=== PATIENT | female | born 1945 | race Caucasian/White ===

== ENCOUNTER 2025-02-25 13:00 | Outpatient (RCR) | payer MEDICARE, SELFPAY ==
[2025-02-11 08:53] VITALS: BP 120/59; PULSE 46; RESP 18; TEMP 36.3; BMI 31.3
--- NOTE | 2025-02-12 13:37 | WC ---
PHOTO 02/11/25 LEFT ANKLE
--- NOTE | 2025-02-12 13:38 | WC ---
PHOTO 02/11/25 RIGHT ANKLE
--- NOTE | 2025-02-13 12:28 | HP.PCM_ITS ---
History of Present Illness Date of Service: 02/11/25 Chief Complaint: Bilateral lower extremity venous stasis ulcerations History of Wound: This is a 79-year-old female with chronic venous insufficiency, venous stasis dermatitis, chronic venous hypertension with ulcer and inflammation, etc. These venous conditions involve both lower extremities. The patient admits to chronic swelling in her lower extremities. She sleeps in a recliner. She is retired, and sits in idle fashion most of each day. The patient presents with severe venous stasis skin changes in both lower extremities, as well as large venous ulcerations bilaterally. She is not diabetic. She smokes cigarettes occasionally. She has been treated at several places prior to her presentation at the [facility] wound center. She has been treated at the [facility]. She has been treated at the [facility] in [facility]. Most recently, the patient has been treated at [facility]. Her treatments have included Unna boots. Treatments have also included the use of Dakin's-moistened gauze. Currently, the patient is using mupirocin 2% ointment and triamcinolone 0.1% ointment topically to the right lower extremity ulceration, and timolol 0.25% gel topically to the left lower extremity ulceration. She is currently in the midst of a course of oral cephalexin. Pentoxifylline 400 mg daily has been prescribed. [facility] Medical History (Updated 02/13/25 @ 12:[address] Aron Sandoval MD) Bilateral leg edema Chronic venous hypertension (idiopathic) with ulcer and inflammation of bilateral lower extremity Venous hypertension, chronic, with ulcer and inflammation Venous hypertension, chronic, with ulcer and inflammation Venous stasis dermatitis of both lower extremities Chronic venous insufficiency Tobacco abuse counseling Tobacco abuse Chronic anticoagulation Polyneuropathy Polycythemia vera Osteoarthritis of right knee History of bladder cancer Atrial fibrillation Hyperlipidemia Hypertension Home Medications ?Medication ?Instructions ?Recorded ?Last Taken ?Type amitriptyline 25 mg tablet mg PO 02/11/25 Unknown Hist ory apixaban 5 mg tablet (Eliquis) 5 mg PO BID 02/11/25 Un known History atenolol 50 mg tablet 50 mg PO DAILY 02/11/25 Unkn own History cephalexin 500 mg capsule 500 mg PO TID 02/11/25 Unkno wn History hydrochlorothiazide 12.5 mg capsule 12.5 mg PO DAILY 0 02/11/25 Unknown History hydroxyurea 500 mg capsule PO 02/11/25 Unknown History ibandronate 150 mg tablet 150 mg PO DAILY 02/11/25 Unk nown History mupirocin 2 % topical ointment topical BID 02/11/25 Un known History oxycodone-acetaminophen 5 mg-325 1 tab PO Q6H PRN PRN severe pain 02/11/25 Unknown History mg tablet pentoxifylline 400 mg 400 mg PO DAILY 02/11/25 Unk nown History tablet,extended release pravastatin 20 mg tablet 20 mg PO QHS 02/11/25 Unknow n History pregabalin 300 mg capsule 300 mg PO QHS 02/11/25 Unkno wn History timolol maleate 0.25 % eye gel BID 02/11/25 Unknown Hi story forming solution triamcinolone acetonide 0.1 % topical BID 02/11/25 Unk nown History topical ointment Allergy/AdvReac Type Severity Reaction Status Date / Time No Known Allergies Allergy Verified 02/11/25 08:50 Social History Smoking Status: Light Smoker (<10/day) Vital Signs Vital Signs Vital Signs: Weight Weight: 194 lb Body Mass Index (BMI) 31.3 Physical Exam Const alert, oriented x3 and no apparent distress General Appearance: cooperative, comfortable and well developed Orientation / Consciousness: awake, oriented to person, oriented to place and oriented to time HEENT normocephalic and head/scalp atraumatic Head and Scalp: normal to inspection, normocephalic and atraumatic Nose: external nose normal External Ear: external ears normal Eyes EOMs intact bilaterally General Eye: normal appearance of both eyes Resp normal respiratory effort, normal air movement, no retractions and no use of accessory muscles Effort and Inspection: able to speak in complete sentences Skin Wound Narrative: Mild swelling and edema are noted in the patient's lower extremities bilaterally. Diffuse atrophy kojo is also noted in the gaiter areas bilaterally. Severe venous stasis dermatitis is noted in the gaiter areas bilaterally. A large ulceration is noted on the distal right posterolateral calf and ankle. A large ulceration is also noted on the left lateral ankle. These ulcerations full-thickness depth, extending through all layers of the dermis and into the subcutaneous tissues. Ulcer margins are irregular. Dimensions are documented elsewhere. There is a moderate amount of slough and nonviable tissue, though some pink, healthy granulation tissue is noted. Lipodermatosclerosis is noted bilaterally. Neuro oriented x3, CN's II-XII intact bilaterally and moves all extremities Sensorium / Orientation: awake, alert, oriented to person, oriented to place and oriented to time Speech: speech normal Psych Appearance: grossly normal and appropriate Attitude: calm Activity / Motor Behavior: appropriate eye contact Speech: normal speech Mood & Affect: euthymic mood Thought Process: normal thought process Thought Content: normal thought content Attention / Concentration: attention grossly intact Debridement Note Debridement Note Wound debrided: Right distal, posterolateral leg and ankle; left lateral ankle Laterality: Not Applicable (Bilateral) Type of Debridement: Excisional debridement Anesthesia Used: Cetacaine Depth: Down to and including healthy tissue and in the subcutaneous layer Percentage of wound debrided: 100 Instrument Used: 5mm curette Tissue Removed: Slough, bioburden, and devitalized tissue Severity: Fat Layer Exposed Amount of bleeding with debridement: Mild Bleeding Controlled with: Compression and gauze Patient tolerated procedure: Patient did not tolerate procedure well Debridement Free Text: The patient refused the application of lidocaine gel. The procedure was performed using Cetacaine spray. The patient did not tolerate debridement well. She was tearful and distraught during the debridement. Her emotional reaction to the debridement process resulted in a somewhat limited debridement. Post-Debridement Measurements and Additional Note: Post-Debridement Measurements/Treatment WC - Nurse 1 - General Ulcer Assessment Start: 02/11/25 08:53 Freq: Status: Active Protocol: CINTHIA Activity Type Activity Date Activity User E-sign Co-sign Detail Recorded Client Recorded Date Recorded By Document 02/11/25 08:53 KW [id number] 02/11/25 09:06 KW 02/11/25 08:53 - Today's Visit Information Type of service Initial Visit Arrival Mode Ambulatory Accompanied by friend Patient Identification Verified (Name & Yes ) Height and Weight Height 5 ft 6 in Weight 194 lb Weight in Pounds 194.0 lbs Weight Measurement Method Estimated by Patient Body Mass Index (BMI) 31.3 BMI Classification Obese Vital Signs Temperature (97.8 F-99.1 F) 97.3 F L Temperature Source Temporal Pulse Rate (60-100) 46 L Pulse Location Monitor Respiratory Rate (12-18) 18 Respiratory rate source Observation Oxygen Delivery Method Room Air Blood Pressure (90/60-120/80) 120/59 L Blood Pressure Mean 79 Source Monitor Position Sitting Blood Pressure Location Left Arm History Since Last Visit- (Skip if this is Patient's initial visit) Left Footwear Regular Shoe Right Footwear Regular Shoe Pain Scale: 0-10 Numeric Is Patient Pain Free? No Communication Assessment Preferred language Syriac Bellman Captain Required No Able to Read Yes Able to Write Yes Communication Tools None Caregiver Communication Skills No Impairment Impairment Right Hearing Abillity Normal Left Hearing Abillity Normal Visual Assistive Devices Glasses Teaching Assessment Preferences Verbal,Written, Demonstration Barriers to Learning None Readiness To Learn Excellent Willingness to Engage in Self Management High Activies Readiness to Engage in Self Management High Activities Anxiety Level Calm Cooperation Cooperative Perception Coherent Interest in Health Problem Asks Questions Education Importance Acknowledges Need Does Patient Smoke tobacco or other No substances Smoking Status Light Smoker (< 10/day) Is Patient Diabetic No Functional Assessment Recent Decline in Ability to Perform Denies Any Declines WC - Nurse 1 - General Ulcer Measurement Start: 02/11/25 08:53 Freq: Status: Active Protocol: Activity Type Activity Date Activity User E-sign Co-sign Detail Recorded Client Recorded Date Recorded By Document 02/11/25 08:53 [id number] 02/11/25 09:06 02/11/25 08:53 Wound Center Nurse 1 #2 LT LAT ANKLE -Current Size (cm) - Length 1.5 -Current Size (cm) - Width 2.5 -Current Size (cm) - Depth 0.3 -Total Square Cm 3.75 -Date of Last Picture (Recall this 02/11/25 field) -Exudate Amt Medium -Exudate Type Serosanguineous -Wound Margin Thickened -Granulation Amt None Present (0 %) -Necrosis Amt Large (67-100%) -Necrotic Tissue Type Adherent Slough -Texture ([place]-wound Skin Appearance) Assessed -Moisture ([place]-wound Skin Appearance) Assessed -Color ([place]-wound Skin Appearance) Assessed, Erythema -Temperature ([place]-wound Skin No Abnormality Appearance) (Pt Warm) -Tenderness on Palpation ([place]-wound No Skin Appearance) -Ulcer Cleansing Soap and Water -Foul Odor after Cleansing No -Anesthetic Used 5% Lidocaine Gel #1 RT LAT LE CLUSTER -Current Size (cm) - Length 12.4 -Current Size (cm) - Width 9.7 -Current Size (cm) - Depth 0.3 -Total Square Cm 120.28 -Date of Last Picture (Recall this 02/11/25 field) -Exudate Amt Medium -Exudate Type Serosanguineous -Wound Margin Thickened -Granulation Amt Small (1-33%) -Granulation Quality [place] -Necrosis Amt Large (67-100%) -Necrotic Tissue Type Adherent Slough -Texture ([place]illa-wound Skin Appearance) Assessed -Moisture ([place]-wound Skin Appearance) Assessed -Color ([place]-wound Skin Appearance) Assessed, Erythema -Temperature ([place]-wound Skin No Abnormality Appearance) (Pt Warm) -Tenderness on Palpation ([place]-wound No Skin Appearance) -Ulcer Cleansing Soap and Water -Foul Odor after Cleansing No Right Calf (cm) 39.6 Left Calf (cm) 40.6 Left Ankle (cm) 24.5 WC - Nurse 2 - General Ulcer CM Notes Start: 02/11/25 08:53 Freq: Status: Active Protocol: Activity Type Activity Date Activity User E-sign Co-sign Detail Recorded Client Recorded Date Recorded By Document 02/11/25 09:32 AMY [id number] 02/11/25 09:53 AMY 02/11/25 09:32 Wound Center Nurse 2 #2 LT LAT ANKLE -Time 09:50 -Correct Patient Yes -Correct Side, Site, Position Yes -Correct Procedure Yes -Procedure Performed Yes -Type of Procedure Debridement -Clinical Debridement Subcutaneous -Tissue Removed Subcutaneous -Post Debridement (cm) - Length 1.8 -Post Debridement (cm) - Width 3.8 -Post Debridement (cm) - Depth 0.2 -Total Square (Post) (cm) 6.84 -Area of Debridement (cm) - Length 1.8 -Area of Debridement (cm) - Width 3.8 -Total Square (Area) (cm) 6.84 -Tunneling No -Undermining/Tunneling No -Circular Undermining No -Wound/Ulcer Outcome Not Healed -Ulcer Cleansing Rinsed/ Irrigated with Saline -Foul Odor after Cleansing No -Bioengineered Tissue No -Bleeding Controlled with Pressure -Treatment Response Procedure Tolerated Well -Offloading No -Debridement - Subq, 1st 20sq cm No #1 RT LAT LE CLUSTER -Time 09:50 -Correct Patient Yes -Correct Side, Site, Position Yes -Correct Procedure Yes -Procedure Performed Yes -Type of Procedure Debridement -Clinical Debridement Subcutaneous -Tissue Removed Subcutaneous -Post Debridement (cm) - Length 8 -Post Debridement (cm) - Width 8 -Post Debridement (cm) - Depth 0.1 -Total Square (Post) (cm) 64 -Area of Debridement (cm) - Length 8 -Area of Debridement (cm) - Width 8 -Total Square (Area) (cm) 64 -Tunneling No -Undermining/Tunneling No -Circular Undermining No -Wound/Ulcer Outcome Not Healed -Ulcer Cleansing Rinsed/ Irrigated with Saline -Foul Odor after Cleansing No -Bioengineered Tissue No -Bleeding Controlled with Pressure -Treatment Response Procedure Tolerated Well -Offloading No -Debridement - Subq, 1st 20sq cm Yes -Debridement, SubQ, ea addt'l 20sq cm 3 or part thereof Pain Scale: 0-10 Numeric Is Patient Pain Free? Yes - Nurse 3 - General Ulcer D/C NN Start: 02/11/25 08:53 Freq: Status: Active Protocol: Activity Type Activity Date Activity User E-sign Co-sign Detail Recorded Client Recorded Date Recorded By Document 02/11/25 10:[address] [facility] [id number] 02/11/25 10:[address] [facility] 02/11/25 10:02 Wound Care Center Nurse 3 #2 LT LAT ANKLE -Ulcer Cleansing Soap and Water -Foul Odor after Cleansing No -Primary Dressing Applied Optilok 5x5 1/2 -Other Dressing DRSG PER AMY RN -Optilok 5x5 1/2 1 #1 RT LAT LE CLUSTER -Ulcer Cleansing Soap and Water -Foul Odor after Cleansing No -Primary Dressing Applied Optilok 5x5 1/2 -Optilok 5x5 1/2 1 BLE -Multi-Layered Wrap Application Unna Boot - Bilateral -Other APPLIED PER AMY RN -Unna- Bilat (Qty applied) 1 Pain Scale: 0-10 Numeric Is Patient Pain Free? Yes WC - Visit Discharge Discharge Condition Stable Ambulatory Status Ambulatory, Walker Transportation Private Auto Accompanied by FRIEND Charges/Coding Procedures Integumentary Add On Codes: 91058 Carri subq tissue add-on (07933 x 3) Multi Select Codes Visit Charges Office Visit/Consults: 03344 OV L4 New 45 min Integumentary Integumentary CPT Codes: 34047 Carri subq tissue 20 sq cm/< (68647 x 1) Assessment/Plan Assessment/Plan (1) Chronic venous hypertension (idiopathic) with ulcer and inflammation of bilateral lower extremity: CODE(S): I87.333 - Chronic venous hypertension (idiopathic) with ulcer and inflammation of bilateral lower extremity (2) Venous hypertension, chronic, with ulcer and inflammation: CODE(S): I87.339 - Chronic venous hypertension (idiopathic) with ulcer and inflammation of unspecified lower extremity QUALIFIERS: Laterality: right Qualified Code(s): I87.331 - Chronic venous hypertension (idiopathic) with ulcer and inflammation of right lower extremity (3) Venous hypertension, chronic, with ulcer and inflammation: CODE(S): I87.339 - Chronic venous hypertension (idiopathic) with ulcer and inflammation of unspecified lower extremity QUALIFIERS: Laterality: left Qualified Code(s): I87.332 - Chronic venous hypertension (idiopathic) with ulcer and inflammation of left lower extremity (4) Venous stasis dermatitis of both lower extremities: CODE(S): I87.2 - Venous insufficiency (chronic) (peripheral) (5) Chronic venous insufficiency: CODE(S): I87.2 - Venous insufficiency (chronic) (peripheral) (6) Bilateral leg edema: CODE(S): R60.0 - Localized edema (7) Hyperlipidemia: CODE(S): E78.5 - Hyperlipidemia, unspecified (8) Hypertension: CODE(S): I10 - Essential (primary) hypertension (9) Atrial fibrillation: CODE(S): I48.91 - Unspecified atrial fibrillation (10) History of bladder cancer: CODE(S): Z85.51 - Personal history of malignant neoplasm of bladder (11) Osteoarthritis of right knee: CODE(S): M17.11 - Unilateral primary osteoarthritis, right knee (12) Polycythemia vera: CODE(S): D45 - Polycythemia vera (13) Polyneuropathy: CODE(S): G62.9 - Polyneuropathy, unspecified (14) Chronic anticoagulation: CODE(S): Z79.01 - half-way (current) use of anticoagulants (15) Tobacco abuse: CODE(S): Z72.0 - Tobacco use (16) Tobacco abuse counseling: CODE(S): Z71.6 - Tobacco abuse counseling PLAN: Plan This is a 79-year-old female with severe, bilateral lower extremity venous disease. She presented with swelling and edema in both lower extremities. There severe venous stasis changes to both lower extremities, as well as large venous stasis ulcerations bilaterally. We have discussed the appropriate conservative measures relative to the management of the patient's venous disease. She has been encouraged to elevate her lower extremity as much as possible. Elevation is to be to heart level, or higher. Elevation should be implemented during both daytime and nighttime hours. Patient has been encouraged to sleep on a flat mattress at night. She is to elevate her legs during the day as well. Patient has been encouraged to complete her oral cephalexin prescription. She has also been encouraged to remain on Pentoxifylline. We have discussed the options for ulcer management. Consid eration had been given to the use of collagenase Santyl topically, with the use of a superabsorber dressing and Tubigrip's or compression wraps. Patient refused to consider this option. She declines to apply compression to her lower extremities on a daily basis. However, she has tolerated Unna boots in the past, and has consented to the use of Unna compression wraps currently, which will be changed twice weekly. Patient has been encouraged to optimize her nutritional intake. She has also been encouraged to discontinue her smoking habit. The patient is to return in 1 week for reevaluation. Total time: 48 minutes
[2025-02-14 13:01] VITALS: BP 123/75; PULSE 79; RESP 19; TEMP 35.8; BMI 31.3
[2025-02-18 13:29] VITALS: BP 135/68; PULSE 47; RESP 18; TEMP 36.4; BMI 31.3
--- NOTE | 2025-02-19 10:17 | WC ---
PHOTO - RIGHT POST LEG 02-18-25
--- NOTE | 2025-02-19 10:18 | WC ---
PHOTO - LEFT LAT ANKLE 02-18-25
--- NOTE | 2025-02-19 14:40 | WC ---
Chaime measuremenets: Length: right 36.0 left 42.0 calf: right 34.5 left 36.0 ankle: right 23.0 left 22.5
--- NOTE | 2025-02-20 11:03 | HP.PCM_ITS ---
History of Present Illness Date of Service: 02/18/25 Chief Complaint: Bilateral lower extremity venous stasis ulcerations History of Wound: This is a 79-year-old female with chronic venous insufficiency, venous stasis dermatitis, chronic venous hypertension with ulcer and inflammation, etc. These venous conditions involve both lower extremities. The patient admits to chronic swelling in her lower extremities. She sleeps in a recliner. She is retired, and sits in idle fashion most of each day. The patient presented with severe venous stasis skin changes in both lower extremities, as well as large venous ulcerations bilaterally. She is not diabetic. She smokes cigarettes occasionally. She has been treated at several places prior to her presentation at the [facility]. She had been treated at the [facility] in [place], [place]. She had been treated at the [facility] in [facility]. Most recently, the patient had been treated at [facility]. Her treatments have included Unna boots. Treatments have also included the use of Dakin's-moistened gauze. At the time of intake, the patient was using mupirocin 2% ointment and triamcinolone 0.1% ointment topically to the right lower extremity ulceration, and timolol 0.25% gel topically to the left lower extremity ulceration. She has completed a recent course of oral cephalexin. Pentoxifylline 400 mg daily has been previously prescribed. The patient denies a history of thrombophlebitis. [facility] Medical History Bilateral leg edema Chronic venous hypertension (idiopathic) with ulcer and inflammation of bilateral lower extremity Venous hypertension, chronic, with ulcer and inflammation Venous hypertension, chronic, with ulcer and inflammation Venous stasis dermatitis of both lower extremities Chronic venous insufficiency Tobacco abuse counseling Tobacco abuse Chronic anticoagulation Polyneuropathy Polycythemia vera Osteoarthritis of right knee History of bladder cancer Atrial fibrillation Hyperlipidemia Hypertension Home Medications ?Medication ?Instructions ?Recorded ?Last Taken ?Type amitriptyline 25 mg tablet mg PO 02/11/25 Unknown Hist ory apixaban 5 mg tablet (Eliquis) 5 mg PO BID 02/11/25 Un known History atenolol 50 mg tablet 50 mg PO DAILY 02/11/25 Unkn own History cephalexin 500 mg capsule 500 mg PO TID 02/11/25 Unkno wn History hydrochlorothiazide 12.5 mg capsule 12.5 mg PO DAILY 0 02/11/25 Unknown History hydroxyurea 500 mg capsule PO 02/11/25 Unknown History ibandronate 150 mg tablet 150 mg PO DAILY 02/11/25 Unk nown History mupirocin 2 % topical ointment topical BID 02/11/25 Un known History oxycodone-acetaminophen 5 mg-325 1 tab PO Q6H PRN PRN severe pain 02/11/25 Unknown History mg tablet pentoxifylline 400 mg 400 mg PO DAILY 02/11/25 Unk nown History tablet,extended release pravastatin 20 mg tablet 20 mg PO QHS 02/11/25 Unknow n History pregabalin 300 mg capsule 300 mg PO QHS 02/11/25 Unkno wn History timolol maleate 0.25 % eye gel BID 02/11/25 Unknown Hi story forming solution triamcinolone acetonide 0.1 % topical BID 02/11/25 Unk nown History topical ointment Allergy/AdvReac Type Severity Reaction Status Date / Time No Known Allergies Allergy Verified 02/11/25 08:50 Social History Smoking Status: Light Smoker (<10/day) Vital Signs Vital Signs Vital Signs: Weight Weight: 194 lb Body Mass Index (BMI) 31.3 Physical Exam Const alert, oriented x3, no apparent distress and no limitations Constitutional Narrative: The patient's BMI is 31.3. General Appearance: cooperative, comfortable and well developed Orientation / Consciousness: awake, oriented to person, oriented to place and oriented to time Exam Limitations: no limitations HEENT normocephalic and head/scalp atraumatic Head and Scalp: normal to inspection, normocephalic and atraumatic Face and Sinus: normal facial exam Nose: external nose normal External Ear: external ears normal Eyes EOMs intact bilaterally General Eye: normal appearance of both eyes Resp normal respiratory effort, normal air movement, no retractions and no use of accessory muscles Effort and Inspection: able to speak in complete sentences Skin Wound Narrative: Mild swelling and edema are noted in the patient's lower extremities bilaterally. Diffuse atrophy kojo is also noted in the gaiter areas bilaterally. Severe venous stasis dermatitis is noted in the gaiter areas bilaterally. A large ulceration is noted on the distal right posterolateral ca lf and ankle. A large ulceration is also noted on the left lateral ankle. These ulcerations are full-thickness in depth, extending through all layers of the dermis and into the subcutaneous tissues. Ulcer margins are irregular. Dimensions are documented elsewhere. There is a moderate amount of slough and nonviable tissue, though some pink, healthy granulation tissue is noted. Lipodermatosclerosis is noted bilaterally. Neuro oriented x3, CN's II-XII intact bilaterally, moves all extremities, no focal motor deficits and no sensory deficits noted Sensorium / Orientation: awake, alert, oriented to person, oriented to place and oriented to time Speech: speech normal Psych Appearance: grossly normal and appropriate Attitude: calm Activity / Motor Behavior: appropriate eye contact Speech: normal speech Mood & Affect: euthymic mood Thought Process: normal thought process Thought Content: normal thought content Attention / Concentration: attention grossly intact Debridement Note Debridement Note Wound debrided: Right distal, postero-lateral leg and ankle; left lateral ankle Laterality: Not Applicable (Bilateral) Type of Debridement: Excisional debridement Anesthesia Used: 5% Lidocaine Gel and Cetacaine Depth: Down to and including healthy tissue and in the subcutaneous layer Percentage of wound debrided: 100 Instrument Used: 5mm curette Tissue Removed: Slough, bioburden, and devitalized tissue Severity: Fat Layer Exposed Amount of bleeding with debridement: Mild Bleeding Controlled with: Compression and gauze Patient tolerated procedure: Patient did not tolerate procedure well Debridement Free Text: The patient did not tolerate debridement well. She was tearful during the debridement. Post-Debridement Measurements and Additional Note: Post-Debridement Measurements/Treatment - Nurse 1 - General Ulcer Assessment Start: 02/11/25 08:53 Freq: Status: Active Protocol: PASTORA.ROMINA Activity Type Activity Date Activity User E-sign Co-sign Detail Recorded Client Recorded Date Recorded By Document 02/11/25 08:53 KW [id number] 02/11/25 09:06 KW Document 02/14/25 13:01 DL [id number] 02/14/25 13:16 DL Document 02/18/25 13:29 KW [id number] 02/18/25 13:31 KW 02/11/25 02/14/25 02/18/25 08:53 13:01 13:29 - Today's Visit Information Type of service Initial Visit Nurse-only Follow-up Visit Visit (Physician/NOVEL[facility] ) Arrival Mode Ambulatory Ambulatory, Ambulatory Wheelchair Transfer Assistance None Accompanied by friend friend Patient Identification Verified (Name & Yes Yes Yes ) Patient Requires Transmission-Based No Precautions Height and Weight Height 5 ft 6 in Weight 194 lb Weight in Pounds 194.0 lbs Weight Measurement Method Estimated by Patient Body Mass Index (BMI) 31.3 31.3 31.3 BMI Classification Obese Obese Obese Vital Signs Temperature (97.8 F-99.1 F) 97.3 F L 96.5 F L 97.5 F L Temperature Source Temporal Oral Temporal Pulse Rate (60-100) 46 L 79 47 L Pulse Location Monitor Monitor Monitor Respiratory Rate (12-18) 18 19 H 18 Respiratory rate source Observation Observation Observation Oxygen Delivery Method Room Air Room Air Blood Pressure (90/60-120/80) 120/59 L 123/75 H 135/68 H Blood Pressure Mean 79 91 90 Source Monitor Monitor Monitor Position Sitting Semi-Fowlers Blood Pressure Location Left Arm Left Arm History Since Last Visit- (Skip if this is Patient's initial visit) Have you changed medications since your No No last visit? Any new allergies or adverse reactions No No Had a fall/change in ADL's that may No No increase risk of falls Signs or symptoms of abuse and/or No neglect since last visit Have you been in the hospital since your No No last visit? Has dressing in place as prescribed Yes Yes Has compression in place as prescribed Yes Yes Has offloadiing in place as prescribed N/A Yes Experienced any changes in pain level or No No management Left Footwear Regular Shoe Regular Shoe Right Footwear Regular Shoe Regular Shoe Pain Scale: 0-10 Numeric Is Patient Pain Free? No Yes Yes Communication Assessment Preferred language Macedonian Quantitative Equity Head Required No Able to Read Yes Able to Write Yes Communication Tools None Caregiver Communication Skills No Impairment Impairment Right Hearing Abillity Normal Left Hearing Abillity Normal Visual Assistive Devices Glasses Teaching Assessment Preferences Verbal,Written, Demonstration Barriers to Learning None Readiness To Learn Excellent Willingness to Engage in Self Management High Activies Readiness to Engage in Self Management High Activities Anxiety Level Calm Cooperation Cooperative Perception Coherent Interest in Health Problem Asks Questions Education Importance Acknowledges Need Does Patient Smoke tobacco or other No substances Smoking Status Light Smoker (< 10/day) Is Patient Diabetic No Functional Assessment Recent Decline in Ability to Perform Denies Any Declines WC - Nurse 1 - General Ulcer Measurement Start: 02/11/25 08:53 Freq: Status: Active Protocol: Activity Type Activity Date Activity User E-sign Co-sign Detail Recorded Client Recorded Date Recorded By Document 02/11/25 08:53 KW [id number] 02/11/25 09:06 KW Document 02/18/25 13:29 KW [id number] 02/18/25 13:31 KW 02/11/25 02/18/25 08:53 13:29 Wound Center Nurse 1 #2 LT LAT ANKLE -Current Size (cm) - Length 1.5 1.5 -Current Size (cm) - Width 2.5 4.5 -Current Size (cm) - Depth 0.3 0.1 -Total Square Cm 3.75 6.75 -Date of Last Picture (Recall this 02/11/25 02/18/25 field) -Exudate Amt Medium Large -Exudate Type Serosanguineous Serosanguineous -Wound Margin Thickened Thickened -Granulation Amt None Present (0 Small (1-33%) %) -Granulation Quality Red -Necrosis Amt Large (67-100%) Large (67-100%) -Necrotic Tissue Type Adherent Slough Adherent Slough -Texture (Kamilla-wound Skin Appearance) Assessed Assessed -Moisture (Kamilla-wound Skin Appearance) Assessed Assessed -Color (Kamilla-wound Skin Appearance) Assessed, Assessed, Erythema Erythema, Hemosiderin Staining -Temperature (Kamilla-wound Skin No Abnormality No Abnormality Appearance) (Pt Warm) (Pt Warm) -Tenderness on Palpation (Kamilla-wound No No Skin Appearance) -Ulcer Cleansing Soap and Water Soap and Water -Foul Odor after Cleansing No No -Anesthetic Used 5% Lidocaine 5% Lidocaine Gel Gel #1 RT LAT LE CLUSTER -Current Size (cm) - Length 12.4 9 -Current Size (cm) - Width 9.7 8 -Current Size (cm) - Depth 0.3 0.2 -Total Square Cm 120.28 72 -Date of Last Picture (Recall this 02/11/25 02/18/25 field) -Exudate Amt Medium Large -Exudate Type Serosanguineous Serosanguineous -Wound Margin Thickened Thickened -Granulation Amt Small (1-33%) Small (1-33%) -Granulation Quality River[place] Riverdale -Necrosis Amt Large (67-100%) Large (67-100%) -Necrotic Tissue Type Adherent Slough Adherent Slough -Texture (Kamilla-wound Skin Appearance) Assessed Assessed -Moisture (Kamilla-wound Skin Appearance) Assessed Assessed -Color (Kamilla-wound Skin Appearance) Assessed, Assessed, Erythema Erythema, Hemosiderin Staining -Temperature (Kamilla-wound Skin No Abnormality No Abnormality Appearance) (Pt Warm) (Pt Warm) -Tenderness on Palpation (Kamilla-wound No No Skin Appearance) -Ulcer Cleansing Soap and Water Soap and Water -Foul Odor after Cleansing No No -Anesthetic Used 5% Lidocaine Gel Right Calf (cm) 39.6 Left Calf (cm) 40.6 Left Ankle (cm) 24.5 WC - Nurse 2 - General Ulcer CM Notes Start: 02/11/25 08:53 Freq: Status: Active Protocol: Activity Type Activity Date Activity User E-sign Co-sign Detail Recorded Client Recorded Date Recorded By Document 02/11/25 09:32 [id number] 02/11/25 09:53 Document 02/18/25 13:47 DS [id number] 02/18/25 13:56 DS 02/11/25 02/18/25 09:32 13:47 Wound Center Nurse 2 #2 LT LAT ANKLE -Time 09:50 13:47 -Correct Patient Yes Yes -Correct Side, Site, Position Yes Yes -Correct Procedure Yes Yes -Procedure Performed Yes Yes -Type of Procedure Debridement Debridement -Clinical Debridement Subcutaneous Subcutaneous -Tissue Removed Subcutaneous Subcutaneous -Post Debridement (cm) - Length 1.8 2.0 -Post Debridement (cm) - Width 3.8 2.5 -Post Debridement (cm) - Depth 0.2 0.2 -Total Square (Post) (cm) 6.84 5.00 -Area of Debridement (cm) - Length 1.8 2.0 -Area of Debridement (cm) - Width 3.8 2.5 -Total Square (Area) (cm) 6.84 5.00 -Tunneling No No -Undermining/Tunneling No No -Circular Undermining No No -Wound/Ulcer Outcome Not Healed Not Healed -Ulcer Cleansing Rinsed/ Irrigated with Saline -Foul Odor after Cleansing No No -Bioengineered Tissue No No -Bleeding Controlled with Pressure Pressure -Treatment Response Procedure Procedure Tolerated Well Tolerated Well -Offloading No -Debridement - Subq, 1st 20sq cm No No #1 RT LAT LE CLUSTER -Time 09:50 13:47 -Correct Patient Yes Yes -Correct Side, Site, Position Yes Yes -Correct Procedure Yes Yes -Procedure Performed Yes Yes -Type of Procedure Debridement Debridement -Clinical Debridement Subcutaneous Subcutaneous -Tissue Removed Subcutaneous Subcutaneous -Post Debridement (cm) - Length 8 8.0 -Post Debridement (cm) - Width 8 8.5 -Post Debridement (cm) - Depth 0.1 0.2 -Total Square (Post) (cm) 64 68.00 -Area of Debridement (cm) - Length 8 8.0 -Area of Debridement (cm) - Width 8 8.5 -Total Square (Area) (cm) 64 68.00 -Tunneling No No -Undermining/Tunneling No No -Circular Undermining No No -Wound/Ulcer Outcome Not Healed Not Healed -Ulcer Cleansing Rinsed/ Irrigated with Saline -Foul Odor after Cleansing No No -Bioengineered Tissue No No -Bleeding Controlled with Pressure Pressure -Treatment Response Procedure Procedure Tolerated Well Tolerated Well -Offloading No -Debridement - Subq, 1st 20sq cm Yes Yes -Debridement, SubQ, ea addt'l 20sq cm 3 3 or part thereof Pain Scale: 0-10 Numeric Is Patient Pain Free? Yes No RLE -Description Sharp,Throbbing -Intensity 7 -Duration (hours) Chronic -Pain Behavior Moaning, Guarding -Pain Aggravating Factors Debridement -Alleviating Factors/Interventions Distraction WC - Nurse 3 - General Ulcer D/C NN Start: 02/11/25 08:53 Freq: Status: Active Protocol: Activity Type Activity Date Activity User E-sign Co-sign Detail Recorded Client Recorded Date Recorded By Document 02/11/25 10:02 [facility] [id number] 02/11/25 10:05 [facility] Document 02/14/25 13:01 DL [id number] 02/14/25 13:16 DL Document 02/18/25 14:21 KW [id number] 02/18/25 14:27 KW Edit Result 02/18/25 14:21 KW (1) [id number] 02/18/25 14:28 KW (1) BLE - Multi-Layered Wrap Application => Unna Boot - => Bilateral - Size E ($) 1 => 2 - Other => tubigrip is for pt => to apply when => switch tp self => dressing for vasc. => visit - Unna- Bilat (Qty applied) => 1 02/11/25 02/14/25 02/18/25 10:02 13:01 14:21 Wound Care Center Nurse 3 #2 LT LAT ANKLE -Ulcer Cleansing Soap and Water Soap and Water Soap and Water -Foul Odor after Cleansing No No -Primary Dressing Applied Optilok 5x5 1/2 Optilok 5x5 1/2 -Other Dressing DRSG PER JF RN ABD -Other Covering Unna -Optilok 5x5 1/2 1 1 #1 RT LAT LE CLUSTER -Ulcer Cleansing Soap and Water Soap and Water -Foul Odor after Cleansing No No -Primary Dressing Applied Optilok 5x5 1/2 Optilok 6.5x10 -Other Dressing ABD -Other Covering Unna -Optilok 5x5 1/2 1 -Optilok 6.5x10 1 BLE -Multi-Layered Wrap Application Unna Boot - Unna Boot - Unna Boot - Bilateral Bilateral Bilateral -Tubular Bandage Single Layer -Size of Tubigrip Used Size E -Size E ($) 2 -Other APPLIED PER JF tubigrip is for RN pt to apply when switch tp self dressing for vasc. visit -Unna- Bilat (Qty applied) 1 1 1 Treatment Response Procedure Tolerated Well Pain Scale: 0-10 Numeric Is Patient Pain Free? Yes Yes Yes WC - Visit Discharge Discharge Condition Stable Stable Stable Ambulatory Status Ambulatory, Ambulatory, Wheelchair Walker Wheelchair Transportation Private Auto Private Auto Private Auto Accompanied by FRIEND Medication Reconcilliation completed & No provided to patient/care provider Clinical Summary of Care Provided Yes Charges/Coding Procedures Integumentary Add On Codes: 85097 Carri subq tissue add-on (46470 x 3) Multi Select Codes Integumentary Integumentary CPT Codes: 22367 Carri subq tissue 20 sq cm/< (20697 x 1) Assessment/Plan Assessment/Plan (1) Chronic venous hypertension (idiopathic) with ulcer and inflammation of bilateral lower extremity: CODE(S): I87.333 - Chronic venous hypertension (idiopathic) with ulcer and inflammation of bilateral lower extremity (2) Venous hypertension, chronic, with ulcer and inflammation: CODE(S): I87.339 - Chronic venous hypertension (idiopathic) with ulcer and inflammation of unspecified lower extremity QUALIFIERS: Laterality: bilateral Qualified Code(s): I87.333 - Chronic venous hypertension (idiopathic) with ulcer and inflammation of bilateral lower extremity (3) Venous stasis dermatitis of both lower extremities: CODE(S): I87.2 - Venous insufficiency (chronic) (peripheral) (4) Chronic venous insufficiency: CODE(S): I87.2 - Venous insufficiency (chronic) (peripheral) (5) Bilateral leg edema: CODE(S): R60.0 - Localized edema (6) Hyperlipidemia: CODE(S): E78.5 - Hyperlipidemia, unspecified (7) Hypertension: CODE(S): I10 - Essential (primary) hypertension (8) Atrial fibrillation: CODE(S): I48.91 - Unspecified atrial fibrillation (9) History of bladder cancer: CODE(S): Z85.51 - Personal history of malignant neoplasm of bladder (10) Osteoarthritis of right knee: CODE(S): M17.11 - Unilateral primary osteoarthritis, right knee (11) Polycythemia vera: CODE(S): D45 - Polycythemia vera (12) Polyneuropathy: CODE(S): G62.9 - Polyneuropathy, unspecified (13) Chronic anticoagulation: CODE(S): Z79.01 - terminal press operator (current) use of anticoagulants (14) Tobacco abuse: CODE(S): Z72.0 - Tobacco use (15) Tobacco abuse counseling: CODE(S): Z71.6 - Tobacco abuse counseling PLAN: Plan This is a 79-year-old female with severe, bilateral lower extremity venous disease. She presented with swelling and edema in both lower extremities. There are severe venous stasis changes to both lower extremities, as well as large venous stasis ulcerations bilaterally. We have discussed the appropriate conservative measures relative to the management of the patient's venous disease. She has been encouraged to elevate her lower extremities as much as possible. Elevation is to be to heart level, or higher. Elevation should be implemented during both daytime and nighttime hours. The patient has been encouraged to sleep on a flat mattress at night. She is to elevate her legs during the day as well. The patient has completed a recent course of oral cephalexin. She has also been encouraged to remain on Pentoxifylline, and a renewal of her prescription is to be sent to her local pharmacy. We have discussed the options for ulcer management. Consideration had been given to the use of collagenase Santyl topically, with the use of a superabsorber dressing and Tubigrip's or compression wraps. The patient refused to consider these options. She refuses to use graduated compression stockings to the lower extremities which would require donning on a daily basis. However, we have demonstrated the option of CircAid Velcro compression garments, and the patient appears to embrace this as an option. Circumference measurements have been obtained of the patient's lower extremities, and will be sent to the patient's DME provider in an attempt to procure CircAid compression garments. The patient has tolerated Unna boots recently, and has consented to the continuing use of Unna compression wraps, which will be changed twice weekly. The patient has been encouraged to optimize her nutritional intake. She has also been encouraged to discontinue her smoking habit. The patient indicates that she has an appointment with Dr. Scotty Lisa, a Vascular Surgeon in [place], [place], on Friday, February 21, 2025. Medical records will be sent to Dr. Lisa as a prelude to his assessment. It is anticipated that the patient may be a candidate for an endovenous ablation procedure. The patient is to return in 1 week for reevaluation. Total time: 28 minutes
[2025-02-25 13:04] VITALS: BP 142/74; PULSE 66; RESP 18; TEMP 36.3; BMI 31.3
--- NOTE | 2025-02-26 13:26 | WC ---
PHOTO-RLE CLUSTER 02/05/25
--- NOTE | 2025-02-26 13:27 | WC ---
PHOTO-RLE CLUSTER 02/25/25
--- NOTE | 2025-02-27 15:53 | HP.PCM_ITS ---
History of Present Illness Date of Service: 02/25/25 Chief Complaint: Bilateral lower extremity venous stasis ulcerations History of Wound: This is a 79-year-old female who was referred with a diagnosis of chronic venous insufficiency, venous stasis dermatitis, chronic venous hypertension with ulcer and inflammation, etc. These venous conditions involved both lower extremities. The patient admits to chronic swelling in her lower extremities. She sleeps in a recliner. She is retired, and sits in idle fashion most of each day. The patient presented with skin changes in both lower extremities which were suggestive of venous stasis dermatitis. Large ulcerations were noted at ankle level bilaterally, also suspicious for a venous origin. The patient is not diabetic. She smokes cigarettes occasionally. She has been treated at several medical facilities prior to her presentation at the [facility]. She had apparently been treated at the [facility] in [place], [place]. She had also been treated at the [facility] in [facility]. Most recently, the patient had been treated at [facility] in [place], [place]. Her treatments have included Unna boots. Treatments have also included the use of Dakin's- moistened gauze. At the time of intake at our facility, the patient was using mupirocin 2% ointment and triamcinolone 0.1% ointment topically to the right lower extremity ulceration, and timolol 0.25% gel topically to the left lower extremity ulceration. She had completed a recent course of oral cephalexin. Pentoxifylline 400 mg daily had been prescribed. The patient denied a history of thrombophlebitis. [facility] Medical History Bilateral leg edema Chronic venous hypertension (idiopathic) with ulcer and inflammation of bilateral lower extremity Venous hypertension, chronic, with ulcer and inflammation Venous hypertension, chronic, with ulcer and inflammation Venous stasis dermatitis of both lower extremities Chronic venous insufficiency Tobacco abuse counseling Tobacco abuse Chronic anticoagulation Polyneuropathy Polycythemia vera Osteoarthritis of right knee History of bladder cancer Atrial fibrillation Hyperlipidemia Hypertension Home Medications ?Medication ?Instructions ?Recorded ?Last Taken ?Type amitriptyline 25 mg tablet mg PO 02/11/25 Unknown Hist ory apixaban 5 mg tablet (Eliquis) 5 mg PO BID 02/11/25 Un known History atenolol 50 mg tablet 50 mg PO DAILY 02/11/25 Unkn own History cephalexin 500 mg capsule 500 mg PO TID 02/11/25 Unkno wn History hydrochlorothiazide 12.5 mg capsule 12.5 mg PO DAILY 0 02/11/25 Unknown History hydroxyurea 500 mg capsule PO 02/11/25 Unknown History ibandronate 150 mg tablet 150 mg PO DAILY 02/11/25 Unk nown History mupirocin 2 % topical ointment topical BID 02/11/25 Un known History oxycodone-acetaminophen 5 mg-325 1 tab PO Q6H PRN PRN severe pain 02/11/25 Unknown History mg tablet pentoxifylline 400 mg 400 mg PO DAILY 02/11/25 Unk nown History tablet,extended release pravastatin 20 mg tablet 20 mg PO QHS 02/11/25 Unknow n History pregabalin 300 mg capsule 300 mg PO QHS 02/11/25 Unkno wn History timolol maleate 0.25 % eye gel BID 02/11/25 Unknown Hi story forming solution triamcinolone acetonide 0.1 % topical BID 02/11/25 Unk nown History topical ointment pentoxifylline 400 mg 400 mg PO TID #90 tabs 02/20 Unknown Rx tablet,extended release Allergy/AdvReac Type Severity Reaction Status Date / Time No Known Allergies Allergy Verified 02/11/25 08:50 Social History Smoking Status: Light Smoker (<10/day) Vital Signs Vital Signs Vital Signs: Weight Weight: 194 lb Body Mass Index (BMI) 31.3 Physical Exam Const alert, oriented x3, no apparent distress and no limitations Constitutional Narrative: The patient's BMI is 31.3. General Appearance: cooperative, comfortable, well kempt and well developed Orientation / Consciousness: awake, oriented to person, oriented to place and oriented to time Exam Limitations: no limitations HEENT normocephalic and head/scalp atraumatic Head and Scalp: normal to inspection, normocephalic and atraumatic Face and Sinus: normal facial exam Nose: external nose normal External Ear: external ears normal Eyes EOMs intact bilaterally General Eye: normal appearance of both eyes Neck full ROM Resp normal respiratory effort, normal air movement, no retractions and no use of accessory muscles Effort and Inspection: able to speak in complete sentences Skin Wound Narrative: Mild swelling and edema are noted in the patient's lower extremities bilaterally. Erythema and dermatitic changes are noted in the gaiter areas bilaterally. A large ulceration is noted on the distal right posterolateral calf and ankle. A large ulceration is also noted on the left lateral ankle. These ulcerations are full-thickness in depth, extending through all layers of the dermis and into the subcutaneous tissues. Ulcer margins are irregular. Dimensions are documented elsewhere. There is a moderate amount of bioburden, slough, and nonviable tissue, though some pink, healthy granulation tissue is noted. Neuro oriented x3, CN's II-XII intact bilaterally, moves all extremities, no focal motor deficits and no sensory deficits noted Sensorium / Orientation: awake, alert, oriented to person, oriented to place and oriented to time Speech: speech normal Psych Appearance: grossly normal and appropriate Attitude: calm Activity / Motor Behavior: appropriate eye contact Speech: normal speech Mood & Affect: euthymic mood Thought Process: normal thought process Thought Content: normal thought content Attention / Concentration: attention grossly intact Debridement Note Debridement Note No debridement was completed: No debridement was completed today Post-Debridement Measurements and Additional Note: Post-Debridement Measurements/Treatment - Nurse 1 - General Ulcer Assessment Start: 02/11/25 08:53 Freq: Status: Active Protocol: CINTHIA Activity Type Activity Date Activity User E-sign Co-sign Detail Recorded Client Recorded Date Recorded By Document 02/11/25 08:53 KW [id number] 02/11/25 09:06 KW Document 02/14/25 13:01 DL [id number] 02/14/25 13:16 DL Document 02/18/25 13:29 KW [id number] 02/18/25 13:31 KW Document 02/25/25 13:04 BMF [id number] 02/25/25 13:13 BM 02/11/25 02/14/25 02/18/25 08:53 13:01 13:29 - Today's Visit Information Type of service Initial Visit Nurse-only Follow-up Visit Visit (Physician/ART GILDER ) Arrival Mode Ambulatory Ambulatory, Ambulatory Wheelchair Transfer Assistance None Transfer Assist (Other) Accompanied by friend friend Patient Identification Verified (Name & Yes Yes Yes ) Patient Requires Transmission-Based No Precautions Height and Weight Height 5 ft 6 in Weight 194 lb Weight in Pounds 194.0 lbs Weight Measurement Method Estimated by Patient Body Mass Index (BMI) 31.3 31.3 31.3 BMI Classification Obese Obese Obese Vital Signs Temperature (97.8 F-99.1 F) 97.3 F L 96.5 F L 97.5 F L Temperature Source Temporal Oral Temporal Pulse Rate (60-100) 46 L 79 47 L Pulse Location Monitor Monitor Monitor Respiratory Rate (12-18) 18 19 H 18 Respiratory rate source Observation Observation Observation Oxygen Delivery Method Room Air Room Air Blood Pressure (90/60-120/80) 120/59 L 123/75 H 135/68 H Blood Pressure Mean 79 91 90 Source Monitor Monitor Monitor Position Sitting Semi-Fowlers Blood Pressure Location Left Arm Left Arm History Since Last Visit- (Skip if this is Patient's initial visit) Have you changed medications since your No No last visit? Any new allergies or adverse reactions No No Had a fall/change in ADL's that may No No increase risk of falls Signs or symptoms of abuse and/or No neglect since last visit Have you been in the hospital since your No No last visit? Has dressing in place as prescribed Yes Yes Has compression in place as prescribed Yes Yes Has offloadiing in place as prescribed N/A Yes Experienced any changes in pain level or No No management Left Footwear Regular Shoe Regular Shoe Right Footwear Regular Shoe Regular Shoe Pain Scale: 0-10 Numeric Is Patient Pain Free? No Yes Yes Communication Assessment Preferred language Georgian Assistant Professor Of Nursing Required No Able to Read Yes Able to Write Yes Communication Tools None Caregiver Communication Skills No Impairment Impairment Right Hearing Abillity Normal Left Hearing Abillity Normal Visual Assistive Devices Glasses Teaching Assessment Preferences Verbal,Written, Demonstration Barriers to Learning None Readiness To Learn Excellent Willingness to Engage in Self Management High Activies Readiness to Engage in Self Management High Activities Anxiety Level Calm Cooperation Cooperative Perception Coherent Interest in Health Problem Asks Questions Education Importance Acknowledges Need Does Patient Smoke tobacco or other No substances Smoking Status Light Smoker (< 10/day) Is Patient Diabetic No Functional Assessment Recent Decline in Ability to Perform Denies Any Declines 02/25/25 13:04 WC - Today's Visit Information Type of service Follow-up Visit (Physician/ART GILDER ) Arrival Mode Wheelchair Transfer Assistance Other Transfer Assist (Other) stand by Accompanied by Patient Identification Verified (Name & ) Patient Requires Transmission-Based Precautions Height and Weight Height Weight Weight in Pounds Weight Measurement Method Body Mass Index (BMI) 31.3 BMI Classification Obese Vital Signs Temperature (97.8 F-99.1 F) 97.4 F L Temperature Source Temporal Pulse Rate (60-100) 66 Pulse Location Monitor Respiratory Rate (12-18) 18 Respiratory rate source Observation Oxygen Delivery Method Room Air Blood Pressure (90/60-120/80) 142/74 H Blood Pressure Mean 96 Source Monitor Position Sitting Blood Pressure Location Right Arm History Since Last Visit- (Skip if this is Patient's initial visit) Have you changed medications since your No last visit? Any new allergies or adverse reactions No Had a fall/change in ADL's that may No increase risk of falls Signs or symptoms of abuse and/or No neglect since last visit Have you been in the hospital since your No last visit? Has dressing in place as prescribed Yes Has compression in place as prescribed Has offloadiing in place as prescribed N/A Experienced any changes in pain level or No management Left Footwear Regular Shoe Right Footwear Regular Shoe Pain Scale: 0-10 Numeric Is Patient Pain Free? Yes Communication Assessment Preferred english language arts teacher Required Able to Read Able to Write Communication Tools Caregiver Communication Skills Impairment Right Hearing Abillity Left Hearing Abillity Visual Assistive Devices Teaching Assessment Preferences Barriers to Learning Readiness To Learn Willingness to Engage in Self Management Activies Readiness to Engage in Self Management Activities Anxiety Level Cooperation Perception Interest in Health Problem Education Importance Does Patient Smoke tobacco or other substances Smoking Status Is Patient Diabetic Functional Assessment Recent Decline in Ability to Perform WC - Nurse 1 - General Ulcer Measurement Start: 02/11/25 08:53 Freq: Status: Active Protocol: Activity Type Activity Date Activity User E-sign Co-sign Detail Recorded Client Recorded Date Recorded By Document 02/11/25 08:53 KW [id number] 02/11/25 09:06 KW Document 02/18/25 13:29 KW [id number] 02/18/25 13:31 KW Document 02/25/25 13:04 [facility] [id number] 02/25/25 13:13 [facility] 02/11/25 02/18/25 02/25/25 08:53 13:29 13:04 Wound Center Nurse 1 #2 LT LAT ANKLE -Combined with other wound No -Current Size (cm) - Length 1.5 1.5 6.4 -Current Size (cm) - Width 2.5 4.5 9.5 -Current Size (cm) - Depth 0.3 0.1 0.1 -Total Square Cm 3.75 6.75 60.80 -Date of Last Picture (Recall this 02/11/25 02/18/25 02/25/25 field) -Photo Taken Yes -Tunneling No -Undermining/Tunneling No -Circular Undermining No -Exudate Amt Medium Large Large -Exudate Type Serosanguineous Serosanguineous Serosanguineous -Wound Margin Thickened Thickened Distinct, Outline Attached -Granulation Amt None Present (0 Small (1-33%) Small (1-33%) %) -Granulation Quality Red Red -Slough/Fibrin Yes -Necrosis Amt Large (67-100%) Large (67-100%) Large (67-100%) -Necrotic Tissue Type Adherent Slough Adherent Slough Adherent Slough -Texture (Kamilla-wound Skin Appearance) Assessed Assessed Assessed, Scarring -Moisture (Kamilla-wound Skin Appearance) Assessed Assessed Assessed,Dry/ Scaly -Color (Kamilla-wound Skin Appearance) Assessed, Assessed, Assessed Erythema Erythema, Hemosiderin Staining -Temperature (Kamilla-wound Skin No Abnormality No Abnormality No Abnormality Appearance) (Pt Warm) (Pt Warm) (Pt Warm) -Tenderness on Palpation (Kamilla-wound No No No Skin Appearance) -Ulcer Cleansing Soap and Water Soap and Water Soap and Water -Foul Odor after Cleansing No No No -Anesthetic Used 5% Lidocaine 5% Lidocaine 4% Lidocaine Gel Gel Solution #1 RT LAT LE CLUSTER -Combined with other wound No -Current Size (cm) - Length 12.4 9 7.4 -Current Size (cm) - Width 9.7 8 6.5 -Current Size (cm) - Depth 0.3 0.2 0.1 -Total Square Cm 120.28 72 48.10 -Date of Last Picture (Recall this 02/11/25 02/18/25 02/25/25 field) -Photo Taken Yes -Epithelialization Small 1-33% -Tunneling No -Undermining/Tunneling No -Circular Undermining No -Exudate Amt Medium Large Large -Exudate Type Serosanguineous Serosanguineous Serosanguineous -Wound Margin Thickened Thickened Distinct, Outline Attached -Granulation Amt Small (1-33%) Small (1-33%) Large (67-100%) -Granulation Quality Rupert Rupert Red -Slough/Fibrin Yes -Necrosis Amt Large (67-100%) Large (67-100%) Small (1-33%) -Necrotic Tissue Type Adherent Slough Adherent Slough Adherent Slough -Texture (Kamilla-wound Skin Appearance) Assessed Assessed Assessed, Scarring -Moisture (Kamilla-wound Skin Appearance) Assessed Assessed Assessed -Color (Kamilla-wound Skin Appearance) Assessed, Assessed, Assessed Erythema Erythema, Hemosiderin Staining -Temperature (Kamilla-wound Skin No Abnormality No Abnormality No Abnormality Appearance) (Pt Warm) (Pt Warm) (Pt Warm) -Tenderness on Palpation (Kamilla-wound No No No Skin Appearance) -Ulcer Cleansing Soap and Water Soap and Water Soap and Water -Foul Odor after Cleansing No No No -Anesthetic Used 5% Lidocaine 4% Lidocaine Gel Solution Right Calf (cm) 39.6 Left Calf (cm) 40.6 Left Ankle (cm) 24.5 WC - Nurse 2 - General Ulcer CM Notes Start: 02/11/25 08:53 Freq: Status: Active Protocol: Activity Type Activity Date Activity User E-sign Co-sign Detail Recorded Client Recorded Date Recorded By Document 02/11/25 09:32 [id number] 02/11/25 09:53 Document 02/18/25 13:47 DS [id number] 02/18/25 13:56 DS Document 02/25/25 13:34 DS [id number] 02/25/25 13:51 DS 02/11/25 02/18/25 02/25/25 09:32 13:47 13:34 Wound Center Nurse 2 #2 LT LAT ANKLE -Time 09:50 13:47 13:34 -Correct Patient Yes Yes Yes -Correct Side, Site, Position Yes Yes Yes -Correct Procedure Yes Yes -Procedure Performed Yes Yes No -Type of Procedure Debridement Debridement -Clinical Debridement Subcutaneous Subcutaneous -Tissue Removed Subcutaneous Subcutaneous -Post Debridement (cm) - Length 1.8 2.0 6.4 -Post Debridement (cm) - Width 3.8 2.5 9.5 -Post Debridement (cm) - Depth 0.2 0.2 0.1 -Total Square (Post) (cm) 6.84 5.00 60.80 -Area of Debridement (cm) - Length 1.8 2.0 6.4 -Area of Debridement (cm) - Width 3.8 2.5 9.5 -Total Square (Area) (cm) 6.84 5.00 60.80 -Tunneling No No No -Undermining/Tunneling No No No -Circular Undermining No No No -Wound/Ulcer Outcome Not Healed Not Healed Not Healed -Ulcer Cleansing Rinsed/ Irrigated with Saline -Foul Odor after Cleansing No No -Bioengineered Tissue No No -Bleeding Controlled with Pressure Pressure -Treatment Response Procedure Procedure Tolerated Well Tolerated Well -Offloading No -Debridement - Subq, 1st 20sq cm No No #1 RT LAT LE CLUSTER -Time 09:50 13:47 13:34 -Correct Patient Yes Yes Yes -Correct Side, Site, Position Yes Yes Yes -Correct Procedure Yes Yes -Procedure Performed Yes Yes No -Type of Procedure Debridement Debridement -Clinical Debridement Subcutaneous Subcutaneous -Tissue Removed Subcutaneous Subcutaneous -Post Debridement (cm) - Length 8 8.0 7.4 -Post Debridement (cm) - Width 8 8.5 6.5 -Post Debridement (cm) - Depth 0.1 0.2 0.1 -Total Square (Post) (cm) 64 68.00 48.10 -Area of Debridement (cm) - Length 8 8.0 7.4 -Area of Debridement (cm) - Width 8 8.5 6.5 -Total Square (Area) (cm) 64 68.00 48.10 -Tunneling No No No -Undermining/Tunneling No No No -Circular Undermining No No No -Wound/Ulcer Outcome Not Healed Not Healed Not Healed -Ulcer Cleansing Rinsed/ Irrigated with Saline -Foul Odor after Cleansing No No -Bioengineered Tissue No No -Bleeding Controlled with Pressure Pressure -Treatment Response Procedure Procedure Tolerated Well Tolerated Well -Offloading No -Debridement - Subq, 1st 20sq cm Yes Yes -Debridement, SubQ, ea addt'l 20sq cm 3 3 or part thereof Pain Scale: 0-10 Numeric Is Patient Pain Free? Yes No Yes RLE -Description Sharp,Throbbing -Intensity 7 -Duration (hours) Chronic -Pain Behavior Moaning, Guarding -Pain Aggravating Factors Debridement -Alleviating Factors/Interventions Distraction WC - Nurse 3 - General Ulcer D/C NN Start: 02/11/25 08:53 Freq: Status: Active Protocol: Activity Type Activity Date Activity User E-sign Co-sign Detail Recorded Client Recorded Date Recorded By Document 02/11/25 10:02 [facility] [id number] 02/11/25 10:05 BM Document 02/14/25 13:01 DL [id number] 02/14/25 13:16 DL Document 02/18/25 14:21 KW [id number] 02/18/25 14:27 KW Edit Result 02/18/25 14:21 KW (1) [id number] 02/18/25 14:28 KW Document 02/25/25 13:59 KW [id number] 02/25/25 14:00 KW (1) BLE - Multi-Layered Wrap Application => Unna Boot - => Bilateral - Size E ($) 1 => 2 - Other => tubigrip is for pt => to apply when => switch tp self => dressing for vasc. => visit - Unna- Bilat (Qty applied) => 1 02/11/25 02/14/25 02/18/25 10:02 13:01 14:21 Wound Care Center Nurse 3 #2 LT LAT ANKLE -Ulcer Cleansing Soap and Water Soap and Water Soap and Water -Foul Odor after Cleansing No No -Primary Dressing Applied Optilok 5x5 1/2 Optilok 5x5 1/2 -Other Dressing DRSG PER JF RN ABD -Primary Dressing Covered/Secured with -Other Covering Unna -Aquacel Extra -Optilok 5x5 1/2 1 1 #1 RT LAT LE CLUSTER -Ulcer Cleansing Soap and Water Soap and Water -Foul Odor after Cleansing No No -Primary Dressing Applied Optilok 5x5 1/2 Optilok 6.5x10 -Other Dressing ABD -Primary Dressing Covered/Secured with -Other Covering Unna -Optilok 5x5 1/2 1 -Optilok 6.5x10 1 BLE -Multi-Layered Wrap Application Unna Boot - Unna Boot - Unna Boot - Bilateral Bilateral Bilateral -Compression Wrap -Tubular Bandage Single Layer -Size of Tubigrip Used Size E -Size E ($) 2 -Other APPLIED PER JF tubigrip is for RN pt to apply when switch tp self dressing for vasc. visit -Unna- Bilat (Qty applied) 1 1 1 Treatment Response Procedure Tolerated Well Pain Scale: 0-10 Numeric Is Patient Pain Free? Yes Yes Yes WC - Visit Discharge Discharge Condition Stable Stable Stable Ambulatory Status Ambulatory, Ambulatory, Wheelchair Walker Wheelchair Transportation Private Auto Private Auto Private Auto Accompanied by FRIEND Medication Reconcilliation completed & No provided to patient/care provider Clinical Summary of Care Provided Yes 02/25/25 13:59 Wound Care Center Nurse 3 #2 LT LAT ANKLE -Ulcer Cleansing -Foul Odor after Cleansing -Primary Dressing Applied Aquacel Extra, Optilok 5x5 1/2 -Other Dressing -Primary Dressing Covered/Secured with Dry Gauze & Roll Gauze, Secured with Tape -Other Covering -Aquacel Extra 1 -Optilok 5x5 1/2 1 #1 RT LAT LE CLUSTER -Ulcer Cleansing -Foul Odor after Cleansing -Primary Dressing Applied Optilok 5x5 1/2 -Other Dressing aquacel extra -Primary Dressing Covered/Secured with Dry Gauze & Roll Gauze, Secured with Tape -Other Covering -Optilok 5x5 1/2 1 -Optilok 6.5x10 BLE -Multi-Layered Wrap Application -Compression Wrap Juan Carlos Wrap -Tubular Bandage -Size of Tubigrip Used -Size E ($) -Other x2 -Unna- Bilat (Qty applied) Treatment Response Pain Scale: 0-10 Numeric Is Patient Pain Free? Yes WC - Visit Discharge Discharge Condition Stable Ambulatory Status Wheelchair Transportation Private Auto Accompanied by friend Medication Reconcilliation completed & No provided to patient/care provider Clinical Summary of Care Provided Yes Charges/Coding Visit Charges Office Visits / Consults: [id number] OV L4 Est 30min Assessment/Plan Assessment/Plan (1) Chronic venous hypertension (idiopathic) with ulcer and inflammation of bilateral lower extremity: CODE(S): I87.333 - Chronic venous hypertension (idiopathic) with ulcer and inflammation of bilateral lower extremity (2) Venous hypertension, chronic, with ulcer and inflammation: CODE(S): I87.339 - Chronic venous hypertension (idiopathic) with ulcer and inflammation of unspecified lower extremity QUALIFIERS: Laterality: bilateral Qualified Code(s): I87.333 - Chronic venous hypertension (idiopathic) with ulcer and inflammation of bilateral lower extremity (3) Venous stasis dermatitis of both lower extremities: CODE(S): I87.2 - Venous insufficiency (chronic) (peripheral) (4) Chronic venous insufficiency: CODE(S): I87.2 - Venous insufficiency (chronic) (peripheral) (5) Bilateral leg edema: CODE(S): R60.0 - Localized edema (6) Hyperlipidemia: CODE(S): E78.5 - Hyperlipidemia, unspecified (7) Hypertension: CODE(S): I10 - Essential (primary) hypertension (8) Atrial fibrillation: CODE(S): I48.91 - Unspecified atrial fibrillation (9) History of bladder cancer: CODE(S): Z85.51 - Personal history of malignant neoplasm of bladder (10) Osteoarthritis of right knee: CODE(S): M17.11 - Unilateral primary osteoarthritis, right knee (11) Polycythemia vera: CODE(S): D45 - Polycythemia vera (12) Polyneuropathy: CODE(S): G62.9 - Polyneuropathy, unspecified (13) Chronic anticoagulation: CODE(S): Z79.01 - [facility] (current) use of anticoagulants (14) Tobacco abuse: CODE(S): Z72.0 - Tobacco use (15) Tobacco abuse counseling: CODE(S): Z71.6 - Tobacco abuse counseling PLAN: Plan This is a 79-year-old female with bilateral distal lower extremity dermatitis and large ulcerations. The initial clinical impression was that of chronic venous insufficiency with venous stasis dermatitis and venous ulcerations. The kamilla-ulcer erythema was considered to be either inflammatory or cellulitic. Mild swelling and edema were noted in both lower extremities, and thought to be rather chronic in nature. The appropriate conservative measures relative to the management of chronic venous disease have been discussed. The patient has been encouraged to elevate her lower extremities as much as possible. Elevation is to be to heart level, or higher. Elevation should be implemented during both daytime and nighttime hours. The patient has been encouraged to sleep on a flat mattress at night, rather than a recliner. The use of compression was also discussed, though the patient was somewhat dismissive of this recommendation. CircAid Velcro compression garments have been obtained for use. The patient has completed a recent course of oral cephalexin. She is also to continue her course of Pentoxifylline, an off-label adjunct to the management of venous ulcerations. Since the patient's initial visit, the patient has been seen and evaluated by Dr. Scotty Lisa, a specialist in Interventional Cardiology and Vascular Medicine. Laboratory studies from [facility] have been obtained, the results of which are as follows: White blood count 8.07, hemoglobin 15.2, hematocrit 48.2, and platelets 269,000. Lab results from January 27, 2025, were also reviewed, with the following results: Sodium 141, potassium 4.1, calcium 8.9, chloride 109, total protein 6.7, BUN 19, creatinine 0.70, albumin 4.1, and glucose 111. A recent skin biopsy from [facility] revealed a diagnosis of benign skin with nonspecific chronic inflammation, negative for malignancy. The recent assessment by Dr. Scotty Lisa indicates a presumptive diagnosis of vegetative pyoderma gangrenosum. As per Dr. 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 VPG is thought to be linked to immune system dysregulation. Unfortunately she has not responded to steroids, likely she should trial another immune regulating medicine. According to the patient, Dr. Lisa has spoken with and referred to another [facility] physician, Dr. Mckenna Eugene, who is an Infectious Disease specialist. The patient has an appointment with Dr. Eugene on March 03. I have spoken with Dr. Eugene regarding the patient's upcoming appointment, indicating the presumptive diagnosis of pyoderma gangrenosum. Our facility has implemented routine measures relative to local wound care management. However, debridements are relatively contraindicated given the patient's presumed diagnosis. Dr. Eugene has indicated she intends to evaluate the patient from an infectious disease standpoint, and may refer the patient to a behavioral health specialist should it be necessary to consider the use of immunosuppressive agents such as cyclosporine, dapsone, or tacrolimus, or the use of biologic agents such as Remicade or adalimumab. It appears that a multidisciplinary approach to the patient's management is warranted. Pyoderma gangrenosum is known to be a diagnosis of exclusion. For now, the patient is to use moistened Aquacel topically to the ulcerations on her lower extremities. The patient has been provided the product, and instructed in the appropriate means of application. A superabsorber dressing is also to be utilized to absorb the drainage from the ulcerations. The patient will follow-up at the [facility] as needed for local wound care, and we will await the recommendations of Dr. Eugene. The patient has been encouraged to optimize her nutritional intake. She has also been encouraged to discontinue her smoking habit. Total time: 30 minutes
== END 2025-02-27 23:59 | disposition home or self-care (01) ==
LOC: WC 13:00
PROVIDERS: Referring Provider Physician Assistant; Visit Provider Surgery
DX: I83.213 Varicose veins of right lower extremity with both ulcer of ankle and inflammation (principal); L97.312 Non-pressure chronic ulcer of right ankle with fat layer exposed; I83.223 Varicose veins of left lower extremity with both ulcer of ankle and inflammation; L97.322 Non-pressure chronic ulcer of left ankle with fat layer exposed; I48.91 Unspecified atrial fibrillation; D45 Polycythemia vera; G62.9 Polyneuropathy, unspecified; E78.5 Hyperlipidemia, unspecified; R60.0 Localized edema; Z79.01 Long term (current) use of anticoagulants; Z79.899 Other long term (current) drug therapy; M17.11 Unilateral primary osteoarthritis, right knee; F17.210 Nicotine dependence, cigarettes, uncomplicated; M79.89 Other specified soft tissue disorders
CPT/HCPCS: 11042; 11045; 29580; 99204; 99213; G0463